=== PATIENT | female | born 1970 | race Asian ===

== ENCOUNTER 2017-10-23 18:15 | Emergency (ER) | payer OTHER ==
[~2017-10-23] VITALS: Ht 162.6 cm; Wt 60.0 kg
[2017-10-23 18:16] VITALS: BP 126/89
== END 2017-10-23 20:05 | disposition left against medical advice (07) ==
LOC: ER 19:56
DX: M54.5 Low back pain (principal); Z53.21 Procedure and treatment not carried out due to patient leaving prior to being seen by health care provider